=== PATIENT | female | born 1995 | race American Indian/Alaskan Native ===

== ENCOUNTER 2019-02-17 05:56 | Day surgery (SDC) | payer MEDICAID ==
[2019-02-17] MEDS ORDERED: NACL BACTERIOSTATIC INFILTRATI ONE (06:30)
[2019-02-17] MEDS ORDERED: LACTATED RINGERS 1,000 ML IV SCH (07:00)
--- NOTE | 2019-02-17 07:02 | Anesthesia Day of Surgery ---
Anesthesia Day of Surgery - Day of Surgery Patient Examined: Yes Patient H&P Reviewed: Yes Patient is NPO: Yes
[2019-02-17] MEDS ORDERED: ZOFRAN IV PRN (07:03)
--- NOTE | 2019-02-17 07:03 | Anesthesia Consultation ---
Anesthesia Consult and Med Hx Date of service: 02/17/19 - Airway Anesthetic Teeth Evaluation: Good ROM Head & Neck: Adequate Mental/Hyoid Distance: Adequate Mallampati Class: Class II Intubation Access Assessment: Good - Pre-Operative Health Status ASA Pre-Surgery Classification: ASA2 Proposed Anesthetic Plan: General - Central Nervous System Hx Neuromuscular Disorder: Yes (Terrell's Palsy) Hx Psychiatric Problems: Yes (ADHD/Schizophrenia) - Other Systems Hx Alcohol Use: Yes (Occas) Hx Cancer: No
--- NOTE | 2019-02-17 07:22 | Short Stay Summary ---
Short Stay Documentation Date of service: 02/17/19 Narrative H&P: 23y/o @ 8+5 weeks with findings of an preoperative demise. The patient denies any vaginal bleeding or passage of tissue. A OB ultrasound was performed with findings of a single gestational sac with a pole that did not demonstrate cardiac activity. The patient elected to undergo surgical management of her missed . - History Principal diagnosis: embryonic demise Past Medical History: No medical history Past Surgical History: No surgical history Social history: single - Allergies and Medications Current Medications: Allergies amoxicillin Adverse Reaction (Verified 02/16/19 14:44) Stomach pain Home Medications Medication Instructions Recorded Confirmed Last Taken Type No Known Home Medications [No 02/16/19 02/16/19 Unknown History Reported Home Medications] Active Medications Fentanyl (Sublimaze) 50 mcg IV Q5MIN PRN PRN Reason: Pain , Severe (7-10) Lactated Ringer's (Lactated Ringers) 1,000 mls @ 100 mls/hr IV DIRECT BRUNA Last Admin: 02/17/19 06:50 Dose: 100 mls/hr Documented by: Ondansetron HCl (Zofran) 4 mg IV ONCE PRN PRN Reason: Nausea And Vomiting - Physical exam General appearance: no acute distress Integumentary: no rash HEENT: Atraumatic Lungs: Clear to auscultation Breasts: deferred Heart: Regular rate Gastrointestinal: normal Female Genitourinary: deferred Rectal Exam: deferred Extremities: no ischemia Neurological: Normal gait - Brief post op/procedure progress note Date of procedure: 02/17/19 Pre-op diagnosis: missed Post-op diagnosis: same Procedure: Suction dilatation and curettage Anesthesia: GETA Surgeon: PHI JEFFERSON Estimated blood loss: 50-100ml Pathology: list (products of conception) Specimen disposition: to lab Condition: stable - Hospital course Hospital course: The patient was admitted the day of surgery and underwent a suction dilatation and curettage for missed . Please see operative note for details of surgery. Postoperative course was uneventful. - Disposition Condition at discharge: Good Disposition: DC-01 TO HOME OR SELFCARE Short Stay Discharge Plan Activity: other (pelvic rest for 1 week) Diet: regular Additional Instructions: Scheduled follow-up with Dr. Hinojosa in 2 weeks Prescriptions: Ibuprofen [Motrin] 800 mg PO Q8HR PRN #60 tablet PRN Reason: Pain, Mild (1-3) HYDROcodone/APAP 5-325 [[place] 5/325] 1 each PO Q6HR PRN #20 tablet PRN Reason: Pain
[2019-02-17] MEDS ORDERED: VERSED ONE (07:28)
[2019-02-17] MEDS ORDERED: XYLOCAINE MPF 2% ONE (07:28)
[2019-02-17] MEDS ORDERED: DIPRIVAN 10 MG/ML IV ONE (07:28)
[2019-02-17] MEDS ORDERED: SILVER NITRATE TP ONE (07:53)
[2019-02-17] MEDS ORDERED: METHERGINE IM ONE ×2 (07:53→08:03)
[2019-02-17] MEDS ORDERED: ZOFRAN ONE (07:59)
[2019-02-17] MEDS ORDERED: TORADOL ONE (07:59)
[2019-02-17] MEDS ORDERED: DECADRON ONE (07:59)
[2019-02-17] MEDS ORDERED: REGLAN ONE (07:59)
[2019-02-17] MEDS ORDERED: WATER FOR IRRIG STERILE IR ONE (08:03)
--- NOTE | 2019-02-17 08:06 | Operative Report ---
Operative Report Operative Report: Date of surgery: 02/17/2019 Preoperative diagnosis: Missed Postoperative diagnosis: Same as above Procedure: Suction dilatation and curettage Surgeon: Yohana Hinojosa M.D. Anesthesia: Gen. endotracheal anesthesia Estimated blood loss: 100 mL Findings: Products of conception Indication: 23-year-old at 8 weeks and 5 days who presents with findings of an embryonic demise. The patient denied any vaginal bleeding or any precipitating event for her loss. Procedure: The patient was taken to the operating room and given general endotracheal anesthesia without complication. The patient is prepped and draped in a normal sterile fashion. A bivalve speculum was placed in the patient's vagina and a single-tooth tenaculums placed on the anterior lip of the cervix. The uterine cavity was then sounded. The cervical os was then dilated with graduated dilators. A number 9 Maori curved cannula was placed to suction and found to be adequate. The cannula was then gently inserted into the dilated cervical os. Evacuation of the uterine contents were performed. Sharp cure ttage and endometrial surface was performed until cry was achieved. The cannula was then gently reinserted into the uterine cavity to evacuate any additional contents. After removal of the cannula there was no evidence of any active bleeding. The vaginal instruments were then removed atraumatically. The patient was then successfully extubated and taken to the recovery room in stable condition. All sponge laps and needle counts were correct -2. Pathology consisted of products of conception.
[2019-02-17] MEDS ORDERED: NORCO 5/325 PO PRN (08:42)
[2019-02-17] MEDS: SUBLIMAZE IV PRN ×2 (08:45→08:55)
[2019-02-17 09:14] VITALS: BP 110/57
--- NOTE | 2019-02-17 19:10 | Post Anesthesia Evaluation ---
- Post Anesthesia Evaluation Patient Participated: Yes Airway Patent: Yes Stable Respiratory Function: Yes Nausea/Vomiting: No Temp > 96.8F: Yes Pain Manageable: Yes Adequeate Hydration: Yes Anesthesia Complications: No Block Receding Appropriately: Not Applicable Patient on Ventilator: No
== END 2019-02-17 09:35 | disposition home or self-care (01) ==
LOC: OR 05:56
PROVIDERS: ATTEND Obstetrics & Gynecology
DX: O02.1 Missed abortion (principal); Z88.6 Allergy status to analgesic agent; Z79.899 Other long term (current) drug therapy; Z72.89 Other problems related to lifestyle; Z98.890 Other specified postprocedural states
CPT/HCPCS: 59820; 86900; 86901; 88305; J1100; J1885; J2210; J2250; J2405; J2704; J2765; J3010; J7120

== ENCOUNTER 2019-02-23 13:59 | Emergency (ER) | payer MEDICAID ==
[2019-02-23 14:16] VITALS: BP 118/88
--- NOTE | 2019-02-23 14:27 | Event Note ---
ED Screening Note Date of service: 02/23/19 Time: 14:25 ED Screening Note: 23 y o female s/p D&C presents xx of pain and pressure with urination and BM This initial assessment/diagnostic orders/clinical plan/treatment(s) is/are subject to change based on patients health status, clinical progression and re- assessment by fellow clinical providers in the ED. Further treatment and workup at subsequent clinical providers discretion. Patient/guardian urged not to elope from the ED as their condition may be serious if not clinically assessed and managed. Initial orders include: ua
[2019-02-23] MEDS ORDERED: oxyCODONE /ACETAMINOPHEN 5-325MG TAB PO ONE (15:39)
--- NOTE | 2019-02-23 15:48 | Emergency Department Report ---
HPI - General Chief Complaint: OB/Uterine Contractions Time Seen by Provider: 02/23/19 14:24 - HPI HPI: PT IS A 23 YO FEMALE WHO COMES TO ER CO VAG PAIN SP D/C LAST WEEK. DID NOT SEE HER OBGYN. REFUSED PAIN MED ON ARRIVAL TO ER ED Past Medical Hx - Past Medical History Previous Medical History?: Yes Hx Psychiatric Treatment: Yes (ADHD) Additional medical history: ADHD, bronchitis - Surgical History Past Surgical History?: Yes Additional Surgical History: DC 02-23 - Social History Smoking Status: Never Smoker Substance Use Type: None - Medications Home Medications: Home Medications Medication Instructions Recorded Confirmed Last Taken Type HYDROcodone/APAP 5-325 [Holder 1 each PO Q6HR PRN #20 tablet 02/17/19 Unknown Rx 5/325] Ibuprofen [Motrin] 800 mg PO Q8HR PRN #60 tablet 02/17/19 Unknown Rx ED Review of Systems ROS: Stated complaint: MISCARRIAGE Other details as noted in HPI Comment: All other systems reviewed and negative Physical Exam - Physical Exam Vital Signs: Vital Signs 02/23/19 14:14 Temperature 98.1 F Pulse Rate 79 Respiratory 20 Rate Blood Pressure 118/88 O2 Sat by Pulse 99 Oximetry Physical Exam: S1S2 LUNGS CTA ABD OBESE SNT NO CVA TENDERNESS ED Course Vital Signs 02/23/19 14:14 Temperature 98.1 F Pulse Rate 79 Respiratory 20 Rate Blood Pressure 118/88 O2 Sat by Pulse 99 Oximetry ED Medical Decision Making - Lab Data Result diagrams: 02/23/19 16:31 - Radiology Data Radiology results: report reviewed, image reviewed - Medical Decision Making Vital Signs 02/23/19 14:14 Temperature 98.1 F Pulse Rate 79 Respiratory 20 Rate Blood Pressure 118/88 O2 Sat by Pulse 99 Oximetry Lab Results 02/23/19 02/23/19 Range/Units 16:31 16:31 WBC 8.3 (4.5-11.0) K/mm3 RBC 4.73 (3.65-5.03) M/mm3 Hgb 12.9 (10.1-14.3) gm/dl Hct 39.7 (30.3-42.9) % MCV 84 (79-97) fl MCH 27 L (28-32) pg MCHC 33 (30-34) % RDW 15.2 (13.2-15.2) % Plt Count 375 (140-440) K/mm3 HCG, Quant 482.1 H (0-4) mIU/mL LABS NOTED HGB STABLE UA NOTED US NOTED DC HOME WITH OBGYN FOLLOW UP. - Differential Diagnosis RO RETAINED PRODUCT Critical care attestation.: If time is entered above; I have spent that time in minutes in the direct care of this critically ill patient, excluding procedure time. ED Disposition Clinical Impression: Complete Disposition: DC-01 TO HOME OR SELFCARE Is pt being admited?: No Does the pt Need Aspirin: No Condition: Stable Instructions: Dilation and Curettage (ED) Additional Instructions: YOUR UTERUS IS EMPTY FOLLOW UP WITH OBGYN THEY INSTRUCTED MOTRIN OR TYLENOL FOR PAIN SAFE SEX DIET AND ACTIVITY TOLERATED Referrals: PRIMARY CARE, [Primary Care Provider] - 3-5 Days PHI JEFFERSON MD [Staff Physician] - 3-5 Days Time of Disposition: 17:43
[2019-02-23 16:39] LABS: Hematocrit 39.7 % (30.3-42.9); Hemoglobin 12.9 gm/dl (10.1-14.3); Mean Corpuscular HGB Conc 33 % (30-34); Mean Corpuscular Volume 84 fl (79-97); Platelet Count 375 K/mm3 (140-440); Red Blood Count 4.73 M/mm3 (3.65-5.03); Red Cell Distribution Width 15.2 % (13.2-15.2)
--- NOTE | 2019-02-23 17:34 | Ultrasound Report ---
US OB transvaginal INDICATION / CLINICAL INFORMATION: abd pain sp d/c. COMPARISON: None available. FINDINGS: Transvaginal imaging was performed. Uterus measures 7.8 x 3.5 x 5.6 cm. Central anechogenicity is seen within the endometrial stripe/cavi ty. There is no abnormal flow within the endometrium. There is a 2.2 cm right ovarian cyst. Flow is seen to the right ovary. Left ovary is unremarkable. No adnexal lesions are seen. No free fluid is seen. IMPRESSION: 1. Central anechogenicity within the endometrial cavity/right could be due to a small amount of endom etrial fluid or hemorrhage. No retained products are identified. 2. 2.2 cm right ovarian cyst. Signer Name: Dann Orozco MD Signed: 02/23/2019 5:30 PM Workstation Name: [id number]
== END 2019-02-23 17:58 | disposition home or self-care (01) ==
LOC: ED 13:59
DX: O03.9 Complete or unspecified spontaneous abortion without complication (principal); O99.340 Other mental disorders complicating pregnancy, unspecified trimester; F90.9 Attention-deficit hyperactivity disorder, unspecified type
CPT/HCPCS: 36415; 76817; 84702; 85027